=== PATIENT | male | born 2000 | race Caucasian/White ===

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

== ENCOUNTER 2021-03-10 10:39 | Emergency (ER) | payer BC | END 2021-03-10 13:05 | disposition home or self-care (01) | LOC: ERS 10:39 | DX: J20.8 Acute bronchitis due to other specified organisms (principal); B97.89 Other viral agents as the cause of diseases classified elsewhere | CPT/HCPCS: 71045 ==